=== PATIENT | male | born 1960 | race Hispanic/Latino ===

== ENCOUNTER 2020-05-31 19:06 | Inpatient (IN) | payer OTHER, SELFPAY ==
[~2020-05-31] VITALS: Ht 167.6 cm; Wt 70.5 kg
[2020-05-31 19:43] LABS: BASOPHILS % (AUTO) 0.3 % (0.0-5.0); EOSINOPHILS % (AUTO) 0.5 % (0.0-8.0); HEMATOCRIT 46.3 % (42-54); MEAN CORPUSCULAR HEMOGLOBIN 32.2 pg (27.0-33.0); MEAN CORPUSCULAR HGB CONC 34.1 g/dL (32.0-36.0); MEAN CORPUSCULAR VOLUME 94.5 fL (79-99); NEUTROPHILS % (AUTO) 78.9 % (40.0-77.0); PLATELET COUNT (AUTO) 317 K/uL (130-400); WHITE BLOOD COUNT (AUTO) 5.8 K/uL (4.8-10.8)
[2020-05-31 19:48] LABS: ABG BASE EXCESS -3.7 mmol/L (-2.0-3.0); ABG HCO3 18.6 mmol/L (21.0-28.0); ABG OXYGEN SATURATION 92.9 % (95.0-99.0); ABG PCO2 27 mmHg (35-48)
[2020-05-31] MEDS ORDERED: ALBUTEROL INHALER 90MCG/INH IH ONE (19:52)
[2020-05-31] MEDS ORDERED: ASPIRIN 325 MG TABLET ONE (19:52)
[2020-05-31] MEDS ORDERED: AZITHROMYCIN 250 MG TABLET PO ONE (19:53)
[2020-05-31] MEDS ORDERED: CEFTRIAXONE SODIUM 1 GM ONE (19:53)
[2020-05-31 19:54] LABS: CREATININE 1.2 mg/dL (0.5-1.5); POTASSIUM 3.9 mmol/L (3.5-5.1)
[2020-05-31] MEDS ORDERED: DEXAMETHASONE SOD PHOSPHATE 10MG/ML 1ML VIAL ONE (19:54)
[2020-05-31] MEDS ORDERED: SODIUM CHLORIDE 0.9% 50 ML IV ONE (19:55)
[2020-05-31 19:56] LABS: INR 0.97 (0.85-1.15); PARTIAL THROMBOPLASTIN TIME 30.6 SEC (26.3-35.5); PROTHROMBIN TIME 10.5 SEC (9.6-11.6)
[2020-05-31 19:58] LABS: ALBUMIN 3.5 g/dL (3.5-5.0); BILIRUBIN,TOTAL 0.4 mg/dL (0.2-1.0); TOTAL PROTEIN, SERUM 8.6 g/dL (6.0-8.3)
[2020-05-31 20:15] LABS: RAPID GROUP A STREP NEGATIVE (NEGATIVE)
[2020-05-31] MEDS ORDERED: ERGOCALCIFEROL (VITAMIN D2) 50,000 UNIT CAPSULE PO ONE (20:45)
[2020-05-31] MEDS ORDERED: CEFTRIAXONE SODIUM 1 GM IV SCH (20:45)
[2020-05-31] MEDS ORDERED: AZITHROMYCIN 500MG+NS 250ML 250 ML IV SCH (20:45)
[2020-05-31] MEDS ORDERED: ONDANSETRON HCL 4 MG/2 ML VIAL IV PRN (20:45)
[2020-05-31] MEDS ORDERED: LACTULOSE 20 GM/30 ML UDCUP PO PRN (20:45)
[2020-05-31] MEDS ORDERED: ACETAMINOPHEN 325 MG TAB PO PRN ×2 (20:45)
[2020-05-31] MEDS ORDERED: DEXAMETHASONE SOD PHOSPHATE 4 MG/ML 1ML VIAL IVP SCH (20:45)
[2020-05-31] MEDS ORDERED: FAMOTIDINE 20MG TAB 20 MG TAB PO SCH (21:00)
[2020-05-31] MEDS ORDERED: ERGOCALCIFEROL (VITAMIN D2) 50,000 UNIT CAPSULE ONE (21:12)
[2020-05-31] MEDS ORDERED: FAMOTIDINE 20MG TAB 20 MG TAB ONE (21:12)
[2020-05-31] MEDS ORDERED: ALBUTEROL INHALER 90MCG/INH IH PRN (21:15)
[2020-05-31] MEDS ORDERED: PHARMACY COMMUNICATION MISC SCH (21:15)
[2020-05-31 21:20] LABS: CRP QUANTITATIVE 99.6 mg/L (0.00-9.0)
[2020-05-31] MEDS ORDERED: IOHEXOL-350 75 ML VIAL IV ONE (22:09)
[2020-05-31] MEDS ORDERED: IOHEXOL 350 MG/ML 100ML INFUS..BTL IV ONE (22:09)
[2020-06-01 01:52] LABS: APPEARANCE,URINE Clear (CLEAR); BILIRUBIN,URINE Negative (NEGATIVE); COLOR,URINE Dark Yellow (YELLOW); GLUCOSE, URINE (UA) Negative (NEGATIVE); KETONES,URINE 15 mg/dL (NEGATIVE); LEUKOCYTE ESTERASE ,URINE Negative (NEGATIVE); NITRATE,URINE Negative (NEGATIVE); OCCULT BLOOD,URINE Negative (NEGATIVE); PROTEIN,URINE POS 1+ mg/dL (NEGATIVE); UROBILINOGEN,URINE 0.2 mg/dL (0.2-1.0)
[2020-06-01 04:18] LABS: HEMATOCRIT 42.7 % (42-54); LYMPHOCYTES % (AUTO) 15.1 % (21.0-51.0); MEAN CORPUSCULAR HEMOGLOBIN 32.2 pg (27.0-33.0); MEAN CORPUSCULAR HGB CONC 34.7 g/dL (32.0-36.0); MEAN CORPUSCULAR VOLUME 92.8 fL (79-99); MONOCYTES % (AUTO) 2.8 % (3.0-13.0); NEUTROPHILS % (AUTO) 81.7 % (40.0-77.0); PLATELET COUNT (AUTO) 311 K/uL (130-400); RED CELL DISTRIBUTION WIDTH 12.1 % (11.0-15.5); WHITE BLOOD COUNT (AUTO) 2.5 K/uL (4.8-10.8)
[2020-06-01 04:42] LABS: BILIRUBIN,TOTAL 0.3 mg/dL (0.2-1.0); CRP QUANTITATIVE 88.8 mg/L (0.00-9.0); POTASSIUM 4.3 mmol/L (3.5-5.1); TOTAL PROTEIN, SERUM 7.6 g/dL (6.0-8.3)
[2020-06-01] MEDS ORDERED: ASCORBIC ACID 500 MG TAB ONE (08:45)
[2020-06-01] MEDS ORDERED: FAMOTIDINE 20MG TAB 20 MG TAB ONE ×2 (08:46→21:51)
[2020-06-01] MEDS ORDERED: ENOXAPARIN SODIUM 40 MG/0.4 ML SYRINGE SQ ONE (08:46)
[2020-06-01] MEDS ORDERED: ZINC SULFATE 220 CAPSULE ONE (08:46)
[2020-06-01] MEDS: ZINC SULFATE 220 CAPSULE PO SCH (09:00)
[2020-06-01] MEDS: ASCORBIC ACID 500 MG TAB PO SCH (09:00)
[2020-06-01] MEDS ORDERED: ENOXAPARIN SODIUM 40 MG/0.4 ML SYRINGE SQ SCH (09:00)
[2020-06-01] MEDS ORDERED: AZITHROMYCIN 500MG+NS 250ML 250 ML IV ONE (21:51)
[2020-06-01] MEDS ORDERED: DEXAMETHASONE SOD PHOSPHATE 4 MG/ML 1ML VIAL ONE (21:51)
[2020-06-01] MEDS ORDERED: CEFTRIAXONE SODIUM 1 GM ONE (21:52)
[2020-06-02 04:45] VITALS: BP 104/72
--- NOTE | 2020-06-02 05:00 | NUR ---
PATIENT ARRIVED ON UNIT. DENIES PAIN AT THIS TIME. 02 SATS >92%, USING 3L OF 0XYGEN VIA NC. PATIENT SATS DROP INTO 80s and DOES C/O SOB WITH EXERTION. PATIENT UNSTEADY GAIT. WILL REMAIN ON BEDREST. DENIES ANY PREVIOUS MEDICAL HX. WILL CONTINUE TO MONITOR.
[2020-06-02 05:48] LABS: HEMATOCRIT 43.9 % (42-54); LYMPHOCYTES % (AUTO) 6.7 % (21.0-51.0); MEAN CORPUSCULAR HEMOGLOBIN 31.6 pg (27.0-33.0); MEAN CORPUSCULAR HGB CONC 34.2 g/dL (32.0-36.0); MEAN CORPUSCULAR VOLUME 92.6 fL (79-99); MONOCYTES % (AUTO) 3.2 % (3.0-13.0); NEUTROPHILS % (AUTO) 89.7 % (40.0-77.0); PLATELET COUNT (AUTO) 395 K/uL (130-400); RED BLOOD CELL COUNT(AUTO) 4.74 MIL/uL (4.50-6.20); RED CELL DISTRIBUTION WIDTH 11.9 % (11.0-15.5); WHITE BLOOD COUNT (AUTO) 7.2 K/uL (4.8-10.8)
[2020-06-02 06:08] LABS: ALBUMIN 2.9 g/dL (3.5-5.0); BILIRUBIN,TOTAL 0.3 mg/dL (0.2-1.0); CRP QUANTITATIVE 43.3 mg/L (0.00-9.0); TOTAL PROTEIN, SERUM 7.3 g/dL (6.0-8.3)
[2020-06-02] MEDS: ZINC SULFATE 220 CAPSULE PO SCH (08:09)
[2020-06-02] MEDS: ASCORBIC ACID 500 MG TAB PO SCH (08:10)
[2020-06-02] MEDS: DEXAMETHASONE 4 MG TAB PO SCH (08:10)
[2020-06-02 08:30] VITALS: BP 107/73
--- NOTE | 2020-06-02 08:30 | NUR ---
ASSESSMENT PT IS AAOX3 DENIES CP DENIES SOB WHILE AT REST, SITTING UPRIGHT IN BED. BREATHING PATTERN IS EVEN AND UNLABORED WHILE AT REST. AM MEDS GIVEN. CALL LIGHT WITHIN REACH.
[2020-06-02] MEDS: ENOXAPARIN SODIUM 30 MG/0.3 ML SQ SCH ×2 (09:00→20:22)
[2020-06-02] MEDS ORDERED: ENOXAPARIN SODIUM 40 MG/0.4 ML SYRINGE SQ SCH (09:00)
[2020-06-02] MEDS ORDERED: ENOXAPARIN SODIUM 30 MG/0.3 ML SQ SCH (09:00)
--- NOTE | 2020-06-02 10:30 | NUR ---
DR MARCELO AND TEAM ROUNDING
[2020-06-02 12:55] VITALS: BP 103/66
--- NOTE | 2020-06-02 13:45 | NUR ---
STATUS RESTING IN BED, NO COMPLAINTS AT THIS TIME. CALL LIGHT WITHIN REACH.
--- NOTE | 2020-06-02 16:19 | NUR ---
CONSENT OBTAINED FOR CONV PLASMA
[2020-06-02 16:30] VITALS: BP 110/66
--- NOTE | 2020-06-02 16:37 | NUR ---
cm note spoke to pt, states resides at home with spouse,and 14yo child, pt independent with adls/ambulation. no dme. no services. drives. discussed community rx assist and clinics in the area, pt verbalizes understanding. dc plan is back home no dc needs. Addendum: 06/02/20 at 1640 by EDEN BENJAMIN CM Amended: Links added.
--- NOTE | 2020-06-02 17:40 | NUR ---
1ST UNIT CONV PLASMA STARTED
--- NOTE | 2020-06-02 18:23 | NUR ---
1ST UNIT CONV PLASMA COMPLETED NO TRANSFUSION REACTION NOTED. VS WNL.
[2020-06-02 19:00] VITALS: BP 111/71
--- NOTE | 2020-06-02 22:40 | NUR ---
2ND UNIT OF CONVALESCENT PLASMA STARTED
[2020-06-02 23:00] VITALS: BP 104/75
--- NOTE | 2020-06-03 00:05 | NUR ---
2ND UNIT OF CONVALESCENT PLASMA COMPLETED, NO TRANSFUSION REACTION NOTED. VS WNL, PT WITHOUT COMPLAINT.
[2020-06-03 03:00] VITALS: BP 95/60
[2020-06-03 04:27] LABS: HEMATOCRIT 38.3 % (42-54); LYMPHOCYTES % (AUTO) 11.2 % (21.0-51.0); MEAN CORPUSCULAR HGB CONC 34.5 g/dL (32.0-36.0); MONOCYTES % (AUTO) 5.8 % (3.0-13.0); NEUTROPHILS % (AUTO) 82.6 % (40.0-77.0); PLATELET COUNT (AUTO) 374 K/uL (130-400); RED BLOOD CELL COUNT(AUTO) 4.12 MIL/uL (4.50-6.20); WHITE BLOOD COUNT (AUTO) 7.1 K/uL (4.8-10.8)
[2020-06-03 04:49] LABS: ALBUMIN 2.9 g/dL (3.5-5.0); BILIRUBIN,TOTAL 0.4 mg/dL (0.2-1.0); CREATININE 0.8 mg/dL (0.5-1.5); CRP QUANTITATIVE 23.1 mg/L (0.00-9.0); POTASSIUM 3.9 mmol/L (3.5-5.1); TOTAL PROTEIN, SERUM 6.8 g/dL (6.0-8.3)
[2020-06-03 07:30] VITALS: BP 103/65
[2020-06-03] MEDS: ZINC SULFATE 220 CAPSULE PO SCH (10:41)
[2020-06-03] MEDS: ASCORBIC ACID 500 MG TAB PO SCH (10:41)
[2020-06-03] MEDS: DEXAMETHASONE 4 MG TAB PO SCH (10:42)
[2020-06-03] MEDS: ENOXAPARIN SODIUM 30 MG/0.3 ML SQ SCH ×2 (10:43→21:54)
[2020-06-03 12:00] VITALS: BP 100/64
--- NOTE | 2020-06-03 12:56 | NUR ---
Pt to be seen for evaluation 06/04 Addendum: 06/03/20 at 1257 by BELLA STERN, PT PT Amended: Links added.
[2020-06-03 16:30] VITALS: BP_SYST 116; BP_SYST 134; BP_DIAS 66; BP_DIAS 71
--- NOTE | 2020-06-03 17:41 | NUR ---
CM NOTE spoke to pt regarding orders for home o2, currently at 3L nc. Per RT maco, pt qualifies for home o2, pt states agreeable to take home o2 portable and o2 concentrator home. and will return back when no longer requires oxygen. also provided rx coupons as requested by dr banegas for eliquis. and good rx for meds. informed pt to present to pharmacy when filling rx. pt verbalizes understanding updated. Edgard primary nurse.
[2020-06-03 19:52] VITALS: BP 108/69
[2020-06-03 23:14] VITALS: BP 108/67
[2020-06-04 03:19] VITALS: BP 107/69
[2020-06-04 04:28] LABS: HEMATOCRIT 40.3 % (42-54); LYMPHOCYTES % (AUTO) 12.9 % (21.0-51.0); MEAN CORPUSCULAR HEMOGLOBIN 31.4 pg (27.0-33.0); MEAN CORPUSCULAR HGB CONC 33.7 g/dL (32.0-36.0); MEAN CORPUSCULAR VOLUME 93.1 fL (79-99); MONOCYTES % (AUTO) 6.8 % (3.0-13.0); NEUTROPHILS % (AUTO) 80.1 % (40.0-77.0); PLATELET COUNT (AUTO) 397 K/uL (130-400); RED BLOOD CELL COUNT(AUTO) 4.33 MIL/uL (4.50-6.20); RED CELL DISTRIBUTION WIDTH 11.9 % (11.0-15.5); WHITE BLOOD COUNT (AUTO) 5.4 K/uL (4.8-10.8)
[2020-06-04 04:50] LABS: CREATININE 0.7 mg/dL (0.5-1.5); CRP QUANTITATIVE 21.5 mg/L (0.00-9.0); POTASSIUM 4.2 mmol/L (3.5-5.1)
[2020-06-04 08:00] VITALS: BP 108/67
--- NOTE | 2020-06-04 08:10 | NUR ---
Dr. Dumont at bedside; verbalizes pt can be discharged after checking to see everything in order for home 0xygen.
[2020-06-04] MEDS: ZINC SULFATE 220 CAPSULE PO SCH (08:13)
[2020-06-04] MEDS: ASCORBIC ACID 500 MG TAB PO SCH (08:13)
[2020-06-04] MEDS: DEXAMETHASONE 4 MG TAB PO SCH (08:13)
[2020-06-04] MEDS: ENOXAPARIN SODIUM 30 MG/0.3 ML SQ SCH (08:14)
[2020-06-04] MEDS ORDERED: DEXA6TAB7 PO (08:43)
[2020-06-04] MEDS ORDERED: APIX2.5T PO (08:43)
--- NOTE | 2020-06-04 10:51 | NUR ---
Dr. Paul visits Aware pt to discharge; has card for [id number]; going home 2-3L Fi02
[2020-06-04 12:00] VITALS: BP 115/71
--- NOTE | 2020-06-04 12:30 | NUR ---
No appetite Pt ate no breakfast and only fruit for lunch. Drinks a little water.
--- NOTE | 2020-06-04 13:29 | NUR ---
discharge instructions: The pt was explained discharge instructions per Ke in Marshallese; he was instructed in the Fi02 use and how to obtain a pulse oximetry and keep it 90-94% attempting to use 2-3L Fi02; he is aware he should send the 02 Tank immediately after getting home and return the larger 02 tank after use is finished. He is aware to self quarantine for 10-14 days. He has a card for his Eliquis and verbalized understanding of how to it. He is aware of precautions for bleeding. Ke typed and printed the instructions in Marshallese for the patient. He will be picked up by a family member he stated. He has a card for Dr. Benjamin, pulmonary.
--- NOTE | 2020-06-04 13:54 | NUR ---
Discharge instructions Discharge instructions discussed again per KAPIL Dempsey and pt. verbalized understanding. A printed page in Mexican was given to the pt with instructions for f/u; eliquis, and 02 use/return of equipment.
--- NOTE | 2020-06-05 10:40 | NUR ---
TRANSITIONAL CARE - POST-DISCHARGE NOTE Spoke to patient at number on file. As per Mr Burns, he is doing well. He states he is wating on the pharmacy to give him his discharge medications. According to the patient, he will follow up with PCP and will call to make an appointment with Dr Benjamin. He denies CP, SOB, N/V/D, fevers/chills. He is currently on 3L NC saturating 92%.
== END 2020-06-04 14:43 | disposition home or self-care (01) | DRG 177 ==
LOC: EDH 19:06 → EDHIP 19:08 → UNDOADMIN 20:31 → EDHIP 20:31 → 2AH 06-02 04:45
PROVIDERS: ADMIT Internal Medicine; ATTEND Internal Medicine
PROC: 30233K1 Transfusion of Nonautologous Frozen Plasma into Peripheral Vein, Percutaneous Approach (ICD-10-PCS; principal; 2020-06-02)
DX: U07.1 COVID-19 (principal); J12.89 Other viral pneumonia; J96.01 Acute respiratory failure with hypoxia; D72.810 Lymphocytopenia
CPT/HCPCS: 36415; 36430; 36600; 71045; 71275; 80048; 80053; 81003; 82550; 82728; 82803; 83615; 84145; 84484; 85025; 85378; 85610; 85730; 86140; 86900; 86901; 86927; 87040; 87426; 87804; 87880; 93005; 93970; 94760; G0378; J0456; J0696; J1100; J1650; J8540; Q9967; U0003